=== PATIENT | female | born 1975 | race Caucasian/White ===

== ENCOUNTER 2017-10-27 06:55 | Emergency (ER) | payer OTHER, SELFPAY ==
[2017-10-27] MEDS ORDERED: HYDROcodone/Acetaminophen 10/325 mg Tablet ONE (07:44)
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
== END 2017-10-27 08:19 | disposition home or self-care (01) ==
LOC: NAV ERS 06:55
DX: M62.830 Muscle spasm of back (principal); F32.9 Major depressive disorder, single episode, unspecified; F17.210 Nicotine dependence, cigarettes, uncomplicated; V43.62XA Car passenger injured in collision with other type car in traffic accident, initial encounter
CPT/HCPCS: 72125